=== PATIENT | female | born 1985 | race American Indian/Alaskan Native ===

== ENCOUNTER 2016-10-06 17:47 | Emergency (ER) | payer OTHER ==
[2016-10-06 18:59] LABS: Bilirubin,Urine NEG (Negative)
[2016-10-06 19:00] LABS: Blood,Urine SM (Negative); Ketones,Urine NEG (Negative); Leukocyte Esterase,Urine NEG (Negative); Mucus,Urine FEW /HPF; Nitrite,Urine NEG (Negative); Protein,Urine <15 mg/dL mg/dL (Negative); Urobilinogen,Urine < 2.0 mg/dL (<2.0)
[2016-10-07 10:01] LABS: Hematocrit 38.4 % (30.3-42.9); Hemoglobin 12.7 gm/dl (10.1-14.3); Mean Corpuscular HGB Conc 33 % (30-34); Mean Corpuscular Hemoglobin 28 pg (28-32); Mean Corpuscular Volume 84 fl (79-97); Platelet Count 300 K/mm3 (140-440); Red Blood Count 4.59 M/mm3 (3.65-5.03); Red Cell Distribution Width 14.4 % (13.2-15.2); White Blood Count 11.7 K/mm3 (4.5-11.0)
[2016-10-07 10:18] LABS: Anion Gap 16 mmol/L; Blood Urea Nitrogen 6 mg/dL (7-17); Carbon Dioxide 23 mmol/L (22-30); Chloride 103.7 mmol/L (98-107); Glucose 90 mg/dL (65-100); Magnesium 2.1 mg/dL (1.7-2.3); Potassium 4.3 mmol/L (3.6-5.0); Sodium 138 mmol/L (137-145)
--- NOTE | 2016-10-07 10:35 | Ultrasound Report ---
Transabdominal and transvaginal OB ultrasound. Findings: There is a single intrauterine with a crown-rump length of 8.1 mm corresponding to gestational age of 6 weeks 5 days. There is no evidence of subchorionic hemorrhage. heart rate measures 146 beats per minute. The right ovary is normal. There is a 1.6 cm in diameter cyst in the left ovary. Impression: 1. Viable IUP at 6 weeks 5 days gestation. 2. Small left ovarian cyst.
[2016-10-07 10:38] LABS: Calcium 12.4 mg/dL (8.4-10.2)
--- NOTE | 2016-10-07 10:40 | Emergency Department Report ---
HPI - General Chief Complaint: Dizziness Time Seen by Provider: 10/07/16 08:56 - HPI HPI: Chief complaint: Dizziness, nausea and sore throat HPI: Patient is 31-year-old female whose last menstrual period was in August who presents with some nausea, sore throat and dizziness. Patient describes the dizziness as a spinning sensation. Patient denies previous history of vertigo. Patient has 2 live children aged 8 and 6. She denies any vaginal bleeding or abdominal pain. Patient denies any other past medical history. Patient here with a friend who translates for her Mode of arrival: private car Source: Patient Began: 2-3 days Duration: 2-3 days Context: No headache, fever, cough, cold, upper respiratory infection. Quality: Pain-free Severity: out of 10 Improved with: Nothing Worsened with: Nothing Associated signs and symptoms: See above ED Past Medical Hx - Past Medical History Previous Medical History?: No - Surgical History Past Surgical History?: Yes Additional Surgical History: - Social History Smoking Status: Never Smoker Substance Use Type: None - Medications Home Medications: Home Medications Medication Instructions Recorded Confirmed Last Taken Type Ondansetron [Zofran Odt] 4 mg PO Q4H PRN #20 tab.rapdis 10/07/16 Unknown Rx ED Review of Systems ROS: Stated complaint: PREG/DIZZY Other details as noted in HPI ROS Constitutional: No fever ENT: No uri symptoms Cardiovascular: No chest pain Respiratory: No sob or cough GI: No diarrhea : No dysuria frequency or urgency, Skin: No rash Neuro: No focal weakness or numbness Psych: No depression Rodrigo/lymph: No edema Physical Exam - Physical Exam Vital Signs: Vital Signs 10/06/16 10/07/16 10/07/16 18:16 08:01 08:32 Temperature 98.6 F 98.4 F Pulse Rate 72 53 L Pulse Rate [ Lying] Respiratory 16 16 16 Rate Blood Pressure 127/73 Blood Pressure 133/62 [Left] Blood Pressure [Lying] O2 Sat by Pulse 100 99 99 Oximetry 10/07/16 10/07/16 10/07/16 09:08 09:10 09:21 Temperature Pulse Rate Pulse Rate [ Lying] Respiratory Rate Blood Pressure 118/68 118/73 Blood Pressure [Left] Blood Pressure [Lying] O2 Sat by Pulse 100 100 100 Oximetry 10/07/16 10/07/16 09:30 09:32 Temperature 98.5 F Pulse Rate 65 Pulse Rate [ 50 L Lying] Respiratory 16 Rate Blood Pressure Blood Pressure 118/68 [Left] Blood Pressure 121/58 [Lying] O2 Sat by Pulse 100 Oximetry Physical Exam: GENERAL: The patient is well-developed well-nourished . HEENT: Normocephalic. Atraumatic. Extraocular motions are intact. Patient has moist mucous membranes. Is no nystagmus. TMs are negative. Pharynx is negative NECK: Supple. No meningitic signs are noted. There is no adenopathy noted. CHEST/LUNGS: Clear to auscultation. There is no respiratory distress noted. HEART/CARDIOVASCULAR: Regular. There is no tachycardia. There is no gallop rub or murmur. ABDOMEN: Abdomen is soft, nontender. Patient has normal bowel sounds. There is no abdominal distention. SKIN: There is no rash. There is no edema. There is no diaphoresis. NEURO: The patient is awake, alert, and oriented. The patient is cooperative. The patient has no focal neurologic deficits. The patient has normal speech. MUSCULOSKELETAL: There is no tenderness or deformity. There is no limitation range of motion. There is no evidence of acute injury. ED Course Vital Signs 10/06/16 10/07/16 10/07/16 18:16 08:01 08:32 Temperature 98.6 F 98.4 F Pulse Rate 72 53 L Pulse Rate [ Lying] Respiratory 16 16 16 Rate Blood Pressure 127/73 Blood Pressure 133/62 [Left] Blood Pressure [Lying] O2 Sat by Pulse 100 99 99 Oximetry 10/07/16 10/07/16 10/07/16 09:08 09:10 09:21 Temperature Pulse Rate Pulse Rate [ Lying] Respiratory Rate Blood Pressure 118/68 118/73 Blood Pressure [Left] Blood Pressure [Lying] O2 Sat by Pulse 100 100 100 Oximetry 10/07/16 10/07/16 09:30 09:32 Temperature 98.5 F Pulse Rate 65 Pulse Rate [ 50 L Lying] Respiratory 16 Rate Blood Pressure Blood Pressure 118/68 [Left] Blood Pressure 121/58 [Lying] O2 Sat by Pulse 100 Oximetry - Reevaluation(s) Reevaluation #1: 10/07/16 Discussed elevated calcium with Dr. Min Ellis he states he will work it up further in the office. Have the patient see him in the next few days. ED Medical Decision Making - Lab Data Result diagrams: 10/07/16 09:22 10/07/16 09:22 Laboratory Tests 10/07/16 09:22 HCG, Quant [id number] H Laboratory Tests 10/07/16 09:22 Calcium 12.4 H* - EKG Data -: EKG Interpreted by Me EKG shows normal: sinus rhythm Rate: normal (61) - EKG Data When compared to previous EKG there are: previous EKG unavailable Interpretation: normal EKG - Radiology Data Radiology results: report reviewed (ultrasound shows 6 week 6 days IUP) Critical care attestation.: If time is entered above; I have spent that time in minutes in the direct care of this critically ill patient, excluding procedure time. ED Disposition Clinical Impression: Dizziness, Intrauterine Disposition: DISCHARGED TO HOME OR SELFCARE Is pt being admited?: No Does the pt Need Aspirin: No Condition: Stable Instructions: Dizziness (ED), (ED) Prescriptions: Ondansetron [Zofran Odt] 4 mg PO Q4H PRN #20 tab.rapdis PRN Reason: Nausea And Vomiting Referrals: PRIMARY CARE, [Primary Care Provider] - 3-5 Days MIN ELLIS MD [Staff Physician] - 7-10 days (Call to make an appointment) Time of Disposition: 10:36
[2016-10-07 12:14] VITALS: BP 120/80
== END 2016-10-07 16:29 | disposition home or self-care (01) ==
LOC: ED 10-07 00:06
DX: O26.891 Other specified pregnancy related conditions, first trimester (principal); R42 Dizziness and giddiness; Z3A.01 Less than 8 weeks gestation of pregnancy
CPT/HCPCS: 36415; 76801; 76817; 80048; 81001; 81025; 83735; 84702; 85027; 86850; 86900; 86901; 93005; 93010

== ENCOUNTER 2016-11-29 23:00 | Emergency (ER) | payer SELFPAY ==
[2016-11-29 23:53] LABS: Basophils % (Auto) 0.3 % (0.0-1.8); Eosinophils % (Auto) 0.8 % (0.0-4.3); Hematocrit 31.2 % (30.3-42.9); Hemoglobin 10.7 gm/dl (10.1-14.3); Mean Corpuscular HGB Conc 34 % (30-34); Mean Corpuscular Hemoglobin 29 pg (28-32); Mean Corpuscular Volume 85 fl (79-97); Platelet Count 268 K/mm3 (140-440); Red Blood Count 3.69 M/mm3 (3.65-5.03); Red Cell Distribution Width 14.2 % (13.2-15.2)
[2016-11-30 00:14] LABS: Blood Urea Nitrogen 4 mg/dL (7-17); Calcium 10.5 mg/dL (8.4-10.2); Carbon Dioxide 22 mmol/L (22-30); Chloride 103.2 mmol/L (98-107); Glucose 79 mg/dL (65-100); Potassium 3.1 mmol/L (3.6-5.0); Sodium 139 mmol/L (137-145)
[2016-11-30 00:26] LABS: Anion Gap 17 mmol/L
[2016-11-30 00:39] LABS: Bacteria,Urine 3+ /HPF (Negative); Bilirubin,Urine NEG (Negative); Blood,Urine NEG (Negative); Ketones,Urine NEG (Negative); Leukocyte Esterase,Urine TR (Negative); Mucus,Urine FEW /HPF; Nitrite,Urine NEG (Negative); Protein,Urine <15 mg/dL mg/dL (Negative)
[2016-11-30] MEDS ORDERED: PEPCID PO ONE (09:41)
[2016-11-30] MEDS ORDERED: ZOFRAN ODT PO ONE (09:41)
[2016-11-30] MEDS ORDERED: K-DUR PO ONE (09:41)
--- NOTE | 2016-11-30 09:49 | Emergency Department Report ---
ED N/V/D HPI - General Chief complaint: Nausea/Vomiting/Diarrhea Stated complaint: VOMITING, NO BM, Source: patient Mode of arrival: Ambulatory Limitations: Language Barrier - History of Present Illness Initial comments: Pt is a 31 yr old female at approximately 14 weeks gestation who presents with nausea, intermittent vomiting, and heart burn. Pt reports she has no care, does not smoke, and was seen in the ED 10/07 for dizziness and was diagnosed with . Pt is a poor historian and does not speak pashto , friend at bedside translating. Pt denies any fevers, chills, JIMÉNEZ, diarrhea, CP , SOB,falls, trauma, vaginal bleeding, vaginal fluid loss, does not take vitamins, travel, or sick contacts. - Related Data Previous Rx's Medication Instructions Recorded Last Taken Type Ondansetron [Zofran Odt] 4 mg PO Q4H PRN #20 tab.rapdis 11/30/16 Unknown Rx Pnv Cmb#21/Iron/Folic Acid 1 each PO DAILY #90 tablet 11/30/16 Unknown Rx [ Complete Caplet] Allergies Allergy/AdvReac Type Severity Reaction Status Date / Time No Known Allergies Allergy Unverified 10/06/16 18:22 ED Review of Systems ROS: Stated complaint: VOMITING, NO BM, Other details as noted in HPI Comment: All other systems reviewed and negative ED Past Medical Hx - Past Medical History Previous Medical History?: No - Surgical History Past Surgical History?: Yes Additional Surgical History: - Social History Smoking Status: Never Smoker Substance Use Type: None - Medications Home Medications: Home Medications Medication Instructions Recorded Confirmed Last Taken Type Ondansetron [Zofran Odt] 4 mg PO Q4H PRN #20 tab.rapdis 11/30/16 Unknown Rx Pnv Cmb#21/Iron/Folic Acid 1 each PO DAILY #90 tablet 11/30/16 Unknown Rx [ Complete Caplet] ED Physical Exam - General Limitations: Language Barrier General appearance: alert, in no apparent distress - Head Head exam: Present: atraumatic, normocephalic - Eye Eye exam: Present: normal appearance - ENT ENT exam: Present: mucous membranes moist - Neck Neck exam: Present: normal inspection - Respiratory Respiratory exam: Present: normal lung sounds bilaterally. Absent: respiratory distress - Cardiovascular Cardiovascular Exam: Present: regular rate, normal rhythm. Absent: systolic murmur, diastolic murmur, rubs, gallop - GI/Abdominal GI/Abdominal exam: Present: soft, normal bowel sounds. Absent: distended, tenderness, guarding, rebound - Extremities Exam Extremities exam: Present: normal inspection - Back Exam Back exam: Present: normal inspection - Neurological Exam Neurological exam: Present: alert, oriented X3 - Psychiatric Psychiatric exam: Present: normal affect, normal mood - Skin Skin exam: Present: warm, dry, intact, normal color. Absent: rash ED Course Vital Signs 11/29/16 11/30/16 11/30/16 23:29 06:20 06:31 Temperature 98.7 F Pulse Rate 74 67 Respiratory 20 20 Rate Blood Pressure 134/68 Blood Pressure 131/70 [Right] O2 Sat by Pulse 100 100 100 Oximetry ED Medical Decision Making - Lab Data Result diagrams: 11/29/16 23:41 11/29/16 23:41 - Medical Decision Making Prior ED records reviewed from 10/08/15, patient had an US at that time and was found to be 6weeks and 6days . prentatal vitamins were discussed at that visit, patient was also found to have high Ca levels for which she was supposed to follow up with Dr Carlton Ellis, which she did not do. I have re-discussed her us findings with her and instructed her to follow up with Dr Ellis Critical care attestation.: If time is entered above; I have spent that time in minutes in the direct care of this critically ill patient, excluding procedure time. ED Disposition Clinical Impression: Nausea and vomiting during prior to 22 weeks gestation, Hypercalcemia Disposition: DISCHARGED TO HOME OR SELFCARE Is pt being admited?: No Does the pt Need Aspirin: No Condition: Stable Instructions: Morning Sickness (ED), Hypercalcemia (ED) Prescriptions: Ondansetron [Zofran Odt] 4 mg PO Q4H PRN #20 tab.rapdis PRN Reason: Nausea And Vomiting Pnv Cmb#21/Iron/Folic Acid [ Complete Caplet] 1 each PO DAILY #90 tablet Referrals: PRIMARY CARE, [Primary Care Provider] - 2-3 Days (Dr Min Ellis) MIN ELLIS MD [Staff Physician] - 3-5 Days
[2016-11-30 10:31] VITALS: BP 120/78
== END 2016-11-30 10:31 | disposition home or self-care (01) ==
LOC: ED 23:00
DX: O21.9 Vomiting of pregnancy, unspecified (principal); O26.891 Other specified pregnancy related conditions, first trimester; E83.52 Hypercalcemia; R11.0 Nausea
CPT/HCPCS: 36415; 80048; 81001; 81025; 85025; 99283; Q0162

== ENCOUNTER 2017-05-19 22:05 | Inpatient (IN) | payer OTHER ==
[2017-05-20] MEDS ORDERED: BICITRA PO ONE (00:34)
[2017-05-20] MEDS ORDERED: PEPCID IV ONE (00:34)
[2017-05-20] MEDS ORDERED: REGLAN IV ONE (00:34)
--- NOTE | 2017-05-20 00:41 | History and Physical Report ---
History of Present Illness Date of examination: 05/20/17 Chief complaint: Contractions History of present illness: Pt is a 31yo BF EDC 05/20/17; EGA 40 0/7 weeks presents from the office complaining of contractions. She was seen in the office of [facility] today where her cx was 2/V/50/-2 She has had 2 previous C Sections and records are not available. Past History Past Medical History: no pertinent history Past Surgical History: section (x2) Social history: no significant social history, - Obstetrical History Expected Date of Delivery: 05/20/17 Actual Gestation: 40 Week(s) 0 Day(s) Medications and Allergies Allergies Allergy/AdvReac Type Severity Reaction Status Date / Time No Known Allergies Allergy Unverified 10/06/16 18:22 Home Medications Medication Instructions Recorded Confirmed Last Taken Type Ondansetron [Zofran Odt] 4 mg PO Q4H PRN #20 tab.rapdis 11/30/16 Unknown Rx 21/Iron Fu/Folic Acid 1 each PO DAILY #90 tablet 11/30/16 Unknown Rx [ Complete Caplet] Active Meds: Active Medications Citric Acid/Sodium Citrate (Bicitra) 30 ml PO ONCE ONE Stop: 05/20/17 00:35 Famotidine (Pepcid) 20 mg IV ONCE ONE Stop: 05/20/17 00:35 Cefazolin Sodium (Ancef/Sterile Water 2 Gm/20 Ml) 2 gm in 20 mls @ 80 mls/hr IV PREOP NR PRN Reason: Protocol Lactated Ringer's (Lactated Ringers) 1,000 mls @ 2,250 mls/hr IV PREOP MILAGROS Stop: 05/21/17 01:27 Oxytocin/Sodium Chloride (Pitocin/Ns 20 Unit/1000ml Drip) 20 units in 1,000 mls @ 0 mls/hr IV TITR MILAGROS PRN Reason: As Directed Metoclopramide HCl (Reglan) 10 mg IV ONCE ONE Stop: 05/20/17 00:35 Review of Systems All systems: negative - Vital Signs Vital signs: Vital Signs Pulse Pulse Ox 208 H 82 L 05/19/17 23:08 05/19/17 23:08 Temp Pulse Resp BP Pulse Ox 278 H 82 L 05/20/17 00:39 05/20/17 00:39 - Physical Exam Breasts: Positive: deferred Cardiovascular: Regular rate Lungs: Positive: Clear to auscultation Abdomen: Positive: normal appearance Genitourinary (Female): Positive: normal external genitalia Vagina: Positive: normal moisture Uterus: Positive: enlarged Extremities: Positive: normal - Obstetrical FHR: category 2 Uterine Contraction Monitor Mode: External Cervical Dilatation: 2 Cervical Effacement Percentage: 50 station: -2 Uterine Contraction Pattern: Regular Uterine Tone Measurement Phase: Contraction Uterine Contraction Intensity: Moderate Results Result Diagrams: 05/20/17 00:50 All other labs normal. Assessment and Plan - Patient Problems (1) 40 weeks gestation of Onset Date: 05/20/17 Current Visit: Yes Status: Acute Plan to address problem: A: IUP @ 40 0/7 weeks Previous C Section x 2 Non-reassuring surveillance P: Admit to L&D for repeat C Section Obtain medical records (2) Previous delivery affecting Onset Date: 05/20/17 Current Visit: Yes Status: Acute
[2017-05-20] MEDS ORDERED: ANCEF/STERILE WATER 2 GM/20 ML 2 GM/20 ML SYRINGE IV NR (01:00)
[2017-05-20] MEDS ORDERED: LACTATED RINGERS 1,000 ML IV SCH (01:00)
[2017-05-20] MEDS ORDERED: PITOCin/NS 20 UNIT/1000ML DRIP 20 UNITS/1,000 ML BAG IV SCH ×2 (01:00→04:00)
[2017-05-20 01:23] LABS: Basophils % (Auto) 0.6 % (0.0-1.8); Eosinophils % (Auto) 0.5 % (0.0-4.3); Hematocrit 32.7 % (30.3-42.9); Hemoglobin 11.2 gm/dl (10.1-14.3); Mean Corpuscular HGB Conc 34 % (30-34); Mean Corpuscular Hemoglobin 29 pg (28-32); Mean Corpuscular Volume 85 fl (79-97); Platelet Count 317 K/mm3 (140-440); Red Blood Count 3.87 M/mm3 (3.65-5.03); Red Cell Distribution Width 15.5 % (13.2-15.2); White Blood Count 10.1 K/mm3 (4.5-11.0)
--- NOTE | 2017-05-20 02:14 | Anesthesia Consultation ---
Anesthesia Consult and Med Hx Date of service: 05/20/17 - Airway Anesthetic Teeth Evaluation: Good ROM Head & Neck: Adequate Mental/Hyoid Distance: Adequate Mallampati Class: Class II Intubation Access Assessment: Probably Good - Pulmonary Exam CTA: Yes - Cardiac Exam Cardiac Exam: RRR - Pre-Operative Health Status ASA Pre-Surgery Classification: ASA2 Proposed Anesthetic Plan: Spinal - Pulmonary Hx Asthma: No COPD: No Hx Pneumonia: No - Cardiovascular System Hx Hypertension: No - Central Nervous System Hx Seizures: No Hx Psychiatric Problems: No - Endocrine Hx Renal Disease: No Hx End Stage Renal Disease: No Hx Hypothyroidism: No Hx Hyperthyroidism: No - Hematic Hx Anemia: No Hx Sickle Cell Disease: No
--- NOTE | 2017-05-20 02:14 | Anesthesia Day of Surgery ---
Anesthesia Day of Surgery - Day of Surgery Patient Examined: Yes Patient H&P Reviewed: Yes Patient is NPO: Yes
[2017-05-20] MEDS ORDERED: DEMEROL ONE (02:19)
[2017-05-20] MEDS ORDERED: NACL 0.9% IR ONE (02:25)
[2017-05-20] MEDS ORDERED: WATER FOR IRRIG STERILE IR ONE (02:25)
--- NOTE | 2017-05-20 03:26 | Operative Report ---
Operative Report Operative Report: Date of procedure: 05/20/2017 Pre-operative diagnosis: 1. Intrauterine of 40-0/7 weeks in labor 2. Previous 2 3. Non-reassuring surveillance Post-operative diagnosis: Same Procedure name(s): Repeat low transverse section Surgeon: Min Ellis MD Enrollment Eligibility Representative: None Anesthesia: Spinal anesthesia by Dr. Drake EBL: 600 mls Findings: A 2968 g male infant Apgars 8 at 1 minute 9 at 5 minutes. Clear amniotic fluid. Normal uterus with lower uterine adhesions. Normal tubes and ovaries bilaterally. Procedure: After the patient was prepped and draped in usual sterile fashion, and after satisfactory level of epidural anesthesia was obtained, the skin knife was used to make a transverse skin incision through the previous skin scar. The incision was excised down to layer of the fascia, which was nicked in the midline and extended laterally using the Bovie cautery. The rectus muscles were dissected off the rectus fascia both superiorly and inferiorly. The rectus bellies in the midline, and the peritoneum was entered under direct visualization. The peritoneal incision was extended superiorly and inferiorly. A bladder flap was created and the bladder blade was then placed. The uterus was scored in a curvilinear linear fashion, entered in the midline revealing clear amniotic fluid. The 's head was delivered onto the surgical field, and the oropharynx and nasopharynx were bulb suctioned. The rest of the 's body was delivered, cord was doubly clamped and cut and the infant was handed to the waiting respiratory team. Cord blood was then obtained. The placenta was manually removed from the uterus, and the uterus removed from its normal anatomical position. After gentle uterine lavage, the incision was inspected and found to be without extensions. It was then closed in 2 layers using 0 Vicryl suture in a running interlocking fashion, the second layer imbricating the first. After good hemostasis was achieved, copious amounts or irrigation was performed, and the gutters were suctioned free of blood and blood clots. The Tisseel sealant was sprayed across the uterine incision. The uterus was then returned to its normal anatomical position, and after excellent hemostasis assured, the peritoneum was re-approximated using 3- 0 Vicryl suture in a running interlocking fashion, and then the rectus muscles were re-approximated using 3-0 Vicryl suture in a [id number] configuration. The fascia was then re-approximated using 0 Vicryl suture in running interlocking fashion. The subcutaneous layer was made hemostatic using Bovie cautery, the Tisseel sealant was sprayed across the fascial incision and the skin edges re-approximated using 4-0 Vicryl suture in a sub-cuticular fashion. Patient tolerated the procedure well was transported to recovery in stable condition.
[2017-05-20] MEDS ORDERED: MYLICON PO PRN (03:28)
[2017-05-20] MEDS ORDERED: MILK OF MAGNESIA PO PRN (03:28)
[2017-05-20] MEDS ORDERED: PHENERGAN PR PRN (03:28)
[2017-05-20] MEDS ORDERED: TUCKS PAD TP PRN (03:28)
[2017-05-20] MEDS ORDERED: ZOFRAN IV PRN (03:28)
[2017-05-20] MEDS ORDERED: NARCAN 0.4 MG/1 ML IV PRN (03:28)
[2017-05-20] MEDS ORDERED: LANSINOH TP PRN (03:28)
--- NOTE | 2017-05-20 03:45 | Post Anesthesia Evaluation ---
- Post Anesthesia Evaluation Patient Participated: Yes Airway Patent: Yes Stable Respiratory Function: Yes Nausea/Vomiting: No Temp > 96.8F: Yes Pain Manageable: Yes Adequeate Hydration: Yes Anesthesia Complications: No Block Receding Appropriately: Yes Patient on Ventilator: No
[2017-05-20] MEDS ORDERED: SODIUM CHLORIDE FLUSH SYRINGE 10 ML IV NR (04:00)
[2017-05-20] MEDS ORDERED: D5LR 1,000 ML IV SCH (04:00)
[2017-05-20] MEDS: TORADOL IV PRN ×2 (04:31→12:11)
[2017-05-20] MEDS ORDERED: DILAUDID IV ONE (09:09)
[2017-05-20] MEDS: ANCEF/NS 1 GM/50 ML 1 GM/50 ML BAG IV SCH ×2 (09:27→17:59)
[2017-05-20] MEDS: FEOSOL PO SCH (10:00)
[2017-05-20] MEDS: PRENATAL VITAMIN PO SCH (10:00)
[2017-05-20] MEDS ORDERED: Fluarix Quad 2017-2018(36 MOS+ IM ONE (12:00)
[2017-05-20 16:29] LABS: Hematocrit 29.4 % (30.3-42.9); Hemoglobin 9.7 gm/dl (10.1-14.3)
[2017-05-20] MEDS: PERCOCET 5/325 PO PRN (19:39)
[2017-05-20] MEDS: MOTRIN PO PRN (19:41)
[2017-05-20] MEDS: NORMODYNE PO SCH (21:50)
[2017-05-21] MEDS: PERCOCET 5/325 PO PRN ×2 (02:50→10:34)
[2017-05-21] MEDS ORDERED: M-M-R II VACCINE SUB-Q ONE (06:00)
[2017-05-21] MEDS ORDERED: BOOSTRIX IM ONE (06:00)
--- NOTE | 2017-05-21 07:57 | Progress Note ---
Assessment and Plan - Patient Problems (1) 40 weeks gestation of Onset Date: 05/20/17 Current Visit: Yes Status: Resolved (2) Previous delivery affecting Onset Date: 05/20/17 Current Visit: Yes Status: Resolved (3) Status post repeat low transverse section Onset Date: 05/21/17 Current Visit: Yes Status: Resolved Plan to address problem: A: S/P Repeat C Section - POD #1 Doing well Asymptomatic anemia - stable Chronic hypertension - improved on Labetolol 200mg BID P: Continue RPOC Anticipate discharge in 24hrs Subjective - Subjective Date of service: 05/21/17 Principal diagnosis: s/p Repeat C Section - POD #2 Interval history: Pt is feeling well without complaints. Tolerating a reg diet without nausea or vomiting. Patient reports: appetite normal, voiding normally, pain well controlled, flatus , ambulating normally [place]: doing well, nursing well Objective - Vital Signs Latest vital signs: Vital Signs Temp Pulse Resp BP BP Pulse Ox 05/21/17 05:00 67 137/63 05/21/17 03:50 18 05/21/17 02:50 20 05/20/17 21:50 71 141/70 05/20/17 21:08 98.9 F 70 20 154/65 05/20/17 19:41 20 05/20/17 19:39 20 05/20/17 16:35 98.6 F 72 28 H 164/82 98 05/20/17 12:40 99.0 F 68 18 159/69 05/20/17 08:00 97.9 F 66 18 162/69 Intake and Output 05/20/17 05/21/17 05/21/17 22:59 06:59 14:59 Intake Total 120 360 Output Total 200 Balance -80 360 Intake: Oral 120 Intake, Free Water 360 Output: Urine 200 Void 200 Other: Total, Intake Amount 120 Total, Output Amount 200 # Voids Void 2 - Exam Breasts: Present: deferred Cardiovascular: Present: Regular rate Lungs: Present: Clear to auscultation Abdomen: Present: normal appearance, soft Uterus: Present: normal, firm, fundal height below umbilicus Extremities: Present: normal Incision: Present: normal, dry, intact, dressed - Labs Labs: Abnormal lab results 05/20/17 Range/Units 15:48 Hgb 9.7 L (10.1-14.3) gm/dl Hct 29.4 L (30.3-42.9) % Laboratory Tests 05/20/17 05/20/17 05/20/17 00:50 00:50 15:48 WBC 10.1 RBC 3.87 Hgb 11.2 9.7 L Hct 32.7 29.4 L MCV 85 MCH 29 MCHC 34 RDW 15.5 H Plt Count 317 Lymph % (Auto) 19.3 [place] % (Auto) 7.4 H Eos % (Auto) 0.5 Baso % (Auto) 0.6 Lymph # 1.9 [place] # 0.7 Eos # 0.0 Baso # 0.1 Seg Neutrophils % 72.2 H Seg Neutrophils # 7.3 Blood Type O POSITIVE Antibody Screen Negative
[2017-05-21] MEDS: NORMODYNE PO SCH ×2 (10:25→21:09)
[2017-05-21] MEDS: FEOSOL PO SCH (10:25)
[2017-05-21] MEDS: PRENATAL VITAMIN PO SCH (10:25)
[2017-05-21] MEDS: MOTRIN PO PRN (10:34)
--- NOTE | 2017-05-21 17:20 | Progress Note ---
Subjective Date of service: 05/21/17 Principal diagnosis: s/p Repeat C Section - POD #2 Interval history: 1st POD after Patient is in the bed, comfortable. Pain is well controlled with pain meds. Ambulated well. No residual neurological deficit. No significant pruritus. No anesthesia complications Objective - Constitutional Vitals: Vital Signs - 12hr 05/21/17 05/21/17 08:20 10:25 Temperature 98.1 F Pulse Rate 97 H 97 H Blood Pressure 131/80 Blood Pressure 131/80 [Right] - Labs CBC & Chem 7: 05/20/17 15:48
[2017-05-22] MEDS: NORCO 5/325 PO PRN ×3 (00:24→16:25)
--- NOTE | 2017-05-22 07:43 | Progress Note ---
Assessment and Plan POD# 2 s/p Repeat LTCS -Stable -Desires discharge home P: -Will discharge home on labetalol 300 mg twice a day -Needs BP check next week -Return to clinic in 2 weeks for incision check - Patient Problems (1) Status post repeat low transverse section Onset Date: 05/21/17 Current Visit: Yes Status: Resolved (2) HTN (hypertension) Current Visit: Yes Status: Acute Qualifiers: Hypertension type: H Subjective - Subjective Date of service: 05/22/17 Principal diagnosis: s/p Repeat C Section - POD #2 Interval history: Patient seen and examined, stable doing well. No issues, blood pressure range 140s over 90s No Shortness of breath or chest pain no headaches Patient reports: appetite normal, voiding normally, pain well controlled, flatus , ambulating normally, no dizzy ambulation, no nauseated : doing well Objective - Vital Signs Latest vital signs: Vital Signs Temp Pulse Resp BP BP 05/22/17 01:09 98.7 F 81 20 140/63 05/22/17 00:24 18 05/21/17 21:09 86 143/58 05/21/17 17:00 98.7 F 86 20 143/58 05/21/17 10:25 97 H 131/80 05/21/17 08:20 98.1 F 97 H 131/80 Intake and Output 05/21/17 05/21/17 05/22/17 15:59 23:59 07:59 Intake Total 360 240 240 Balance 360 240 240 Intake: Oral 360 120 Intake, Free Water 120 240 Other: Total, Intake Amount 120 120 Voiding Method Toilet Toilet # Voids Void 1 1 1 - Exam Abdomen: Present: normal appearance, soft. Absent: distention, tenderness, guarding, rigidity
--- NOTE | 2017-05-22 07:46 | Discharge Summary ---
Providers - Providers Date of Admission: 05/20/17 00:47 Date of discharge: 05/22/17 Attending physician: LEONOR MCMAHAN Primary care physician: LEONOR MCMAHAN Hospitalization Reason for admission: active labor, section Delivery: Procedure: repeat low transverse Incision: dry, intact Other procedures: none complications: none Discharge diagnosis: IUP at term delivered [place] baby: male Hospital course: Uncomplicated postoperative course Condition at discharge: Good Disposition: DC-01 TO HOME OR SELFCARE - Discharge Diagnoses (1) Status post repeat low transverse section Status: Resolved (2) HTN (hypertension) Status: Acute Qualifiers: Hypertension type: H Plan - Discharge Medications Prescriptions: Ferrous Sulfate [Feosol 325 MG tab] 325 mg PO BID #60 tablet HYDROcodone/APAP 5-325 [[place] 5/325] 1 each PO Q6HR PRN #30 tablet PRN Reason: Pain Ibuprofen [Motrin] 800 mg PO Q8HR PRN #30 tablet PRN Reason: Moder Pain Unrelieved By [place] Labetalol [Normodyne TAB] 200 mg PO BID #60 tablet Vit Calc,Iron,Folic [ Vitamins] 1 each PO DAILY #30 tablet - Provider Discharge Summary Activity: no sex for 6 weeks, no heavy lifting 4 weeks, no strenuous exercise Diet: routine Additional instructions: [] Smoking cessation referral if applicable(refer to patient education folder for contact #) [] Refer to [facility] Booklet Call your doctor immediately for: * Fever > 100.5 * Heavy vaginal bleeding ( >1 pad per hour) * Severe persistent headache * Shortness of breath * Reddened, hot, painful area to leg or breast * Drainage or odor from incision. * Keep incision clean and dry at all times and follow doctor's instructions regarding bathing/showering - Follow up plan Follow up: LEONOR MCMAHAN MD [Primary Care Provider] - 05/26/17 (BP check) RANDI ARMSTRONG MD [Staff Physician] - 14 Days (Incision check)
[2017-05-22] MEDS: FEOSOL PO SCH (09:08)
[2017-05-22] MEDS: PRENATAL VITAMIN PO SCH (09:08)
[2017-05-22] MEDS: MOTRIN PO PRN ×2 (09:09→16:26)
[2017-05-22] MEDS: NORMODYNE PO SCH (09:10)
[2017-05-22 09:36] LABS: HIV-1 Antigen p24 Non React (Non React); HIVR-1/2 Ab Non React (Non React)
[2017-05-22 17:28] VITALS: BP 150/64
== END 2017-05-22 19:05 | disposition home or self-care (01) | DRG 766 ==
LOC: TRG 22:05 → APU 05-20 00:47 → OB 05-20 06:53
PROVIDERS: ADMIT Obstetrics & Gynecology; ATTEND Obstetrics & Gynecology
PROC: 10D00Z1 Extraction of Products of Conception, Low, Open Approach (ICD-10-PCS; principal; 2017-05-20)
PROC: 3E0234Z Introduction of Serum, Toxoid and Vaccine into Muscle, Percutaneous Approach (ICD-10-PCS; 2017-05-20)
DX: O34.211 Maternal care for low transverse scar from previous cesarean delivery (principal); O76 Abnormality in fetal heart rate and rhythm complicating labor and delivery; Z37.0 Single live birth; Z3A.40 40 weeks gestation of pregnancy; Z23 Encounter for immunization; O16.4 Unspecified maternal hypertension, complicating childbirth
CPT/HCPCS: 36415; 85014; 85018; 85025; 86592; 86762; 86850; 86900; 86901; 87806; 90686; 90707; 99211; G0463; J0690; J1170; J1885; J2175; J2405; J2590; J2765; J7120; J7121

== ENCOUNTER 2017-06-05 10:21 | Inpatient (IN) | payer OTHER ==
[2017-06-05 11:13] LABS: Anion Gap 17 mmol/L; BUN/Creatinine Ratio 40; Blood Urea Nitrogen 16 mg/dL (7-17); Calcium 9.7 mg/dL (8.4-10.2); Carbon Dioxide 25 mmol/L (22-30); Chloride 106.4 mmol/L (98-107); Glucose 72 mg/dL (65-100); Potassium 3.6 mmol/L (3.6-5.0); Sodium 145 mmol/L (137-145)
[2017-06-05 11:20] LABS: Basophils % (Auto) 0.7 % (0.0-1.8); Eosinophils % (Auto) 1.4 % (0.0-4.3); Hematocrit 31.7 % (30.3-42.9); Hemoglobin 10.5 gm/dl (10.1-14.3); Mean Corpuscular HGB Conc 33 % (30-34); Mean Corpuscular Hemoglobin 28 pg (28-32); Mean Corpuscular Volume 84 fl (79-97); Platelet Count 524 K/mm3 (140-440); Red Blood Count 3.78 M/mm3 (3.65-5.03); Red Cell Distribution Width 16.4 % (13.2-15.2); White Blood Count 6.6 K/mm3 (4.5-11.0)
[2017-06-05] MEDS ORDERED: VANCOMYCIN/NS 1 GM/250 ML 1 GM/250 ML BAG IV ONE (12:09)
[2017-06-05] MEDS ORDERED: NACL 0.9% 1000 ML 1,000 ML IV ONE (12:09)
--- NOTE | 2017-06-05 13:18 | Emergency Department Report ---
ED Abdominal Pain HPI - General Chief Complaint: Laceration/Recheck/Suture Stated Complaint: OPEN Time Seen by Provider: 06/05/17 11:48 Source: patient, family Mode of arrival: Ambulatory Limitations: Language Barrier - History of Present Illness Initial Comments: 31 yo female with c-sec done on 05/19/[address] Min Ellis is here with h/o drainage from incision site and dehiscence of incision. Pt had drainage for 3 days and wound opened up. She does not speak Polish and has the friend of her her to translate. The entire room has extremely bad odor of rotting flesh Complaint: abdominal pain -: Gradual, days(s) (3) Location: suprapubic Radiation: none Migration to: no migration Severity scale (0 -10): 5 Quality: aching Consistency: constant Improves With: nothing Worsens With: nothing Associated Symptoms: other (wound dehiscence) - Related Data LMP (females 10-50): other ( by two weeks) Previous Rx's Medication Instructions Recorded Last Taken Type Ondansetron [Zofran Odt] 4 mg PO Q4H PRN #20 tab.rapdis 11/30/16 1 Week Ago Rx ~05/13/17 21/Iron Fu/Folic Acid 1 each PO DAILY #90 tablet 11/30/16 1 Week Ago Rx [ Complete Caplet] ~05/13/17 Ferrous Sulfate [Feosol 325 MG tab] 325 mg PO BID #60 tablet 05/20/17 Unknown Rx HYDROcodone/APAP 5-325 [[place] 1 each PO Q6HR PRN #30 tablet 05/20/17 Unknown Rx 5/325] Ibuprofen [Motrin] 800 mg PO Q8HR PRN #30 tablet 05/20/17 Unknown Rx Vit Calc,Iron,Folic 1 each PO DAILY #30 tablet 05/20/17 Unknown Rx [ Vitamins] Labetalol [Normodyne TAB] 200 mg PO BID #60 tablet 05/21/17 Unknown Rx Labetalol [Normodyne TAB] 300 mg PO BID #120 tablet 05/22/17 Unknown Rx Allergies Allergy/AdvReac Type Severity Reaction Status Date / Time No Known Allergies Allergy Verified 06/05/17 12:12 ED Review of Systems ROS: Stated complaint: OPEN Other details as noted in HPI Constitutional: denies: chills, fever Eyes: denies: eye pain, eye discharge, vision change ENT: denies: ear pain, throat pain Respiratory: denies: cough, shortness of breath, wheezing Cardiovascular: denies: chest pain, palpitations Endocrine: no symptoms reported Gastrointestinal: denies: abdominal pain, nausea, diarrhea Genitourinary: denies: urgency, dysuria, discharge Musculoskeletal: denies: back pain, joint swelling, arthralgia Skin: lesions, other (wound dehiscence). denies: rash Neurological: denies: headache, weakness, paresthesias Psychiatric: denies: anxiety, depression Hematological/Lymphatic: denies: easy bleeding, easy bruising ED Past Medical Hx - Past Medical History Previous Medical History?: Yes Hx Hypertension: Yes (post ) Hx Congestive Heart Failure: No Hx Diabetes: No Hx Deep Vein Thrombosis: No Hx Renal Disease: No Hx Sickle Cell Disease: No Hx Seizures: No Hx Asthma: No Hx COPD: No Hx HIV: No - Surgical History Additional Surgical History: - Social History Smoking Status: Never Smoker Substance Use Type: None - Medications Home Medications: Home Medications Medication Instructions Recorded Confirmed Last Taken Type Ondansetron [Zofran Odt] 4 mg PO Q4H PRN #20 tab.rapdis 11/30/16 05/20/17 1 Week Ago Rx ~05/13/17 21/Iron Fu/Folic Acid 1 each PO DAILY #90 tablet 11/30/16 05/20/17 1 Week Ago Rx [ Complete Caplet] ~05/13/17 Ferrous Sulfate [Feosol 325 MG tab] 325 mg PO BID #60 tablet 05/20/17 Unknown Rx HYDROcodone/APAP 5-325 [[place] 1 each PO Q6HR PRN #30 tablet 05/20/17 Unknown Rx 5/325] Ibuprofen [Motrin] 800 mg PO Q8HR PRN #30 tablet 05/20/17 Unknown Rx Vit Calc,Iron,Folic 1 each PO DAILY #30 tablet 05/20/17 Unknown Rx [ Vitamins] Labetalol [Normodyne TAB] 200 mg PO BID #60 tablet 05/21/17 Unknown Rx Labetalol [Normodyne TAB] 300 mg PO BID #120 tablet 05/22/17 Unknown Rx ED Physical Exam - General Limitations: Language Barrier General appearance: alert, in no apparent distress - Head Head exam: Present: atraumatic, normocephalic - Eye Eye exam: Present: normal appearance, EOMI - ENT ENT exam: Present: mucous membranes moist - Neck Neck exam: Present: normal inspection - Respiratory Respiratory exam: Present: normal lung sounds bilaterally. Absent: respiratory distress - Cardiovascular Cardiovascular Exam: Present: regular rate, normal rhythm. Absent: systolic murmur, diastolic murmur, rubs, gallop - GI/Abdominal GI/Abdominal exam: Present: soft, tenderness (around incision in lower abdomen) , normal bowel sounds, other (infected) - Rectal Rectal exam: Present: deferred - Extremities Exam Extremities exam: Present: normal inspection, full ROM - Back Exam Back exam: Present: normal inspection - Neurological Exam Neurological exam: Present: alert, oriented X3 - Psychiatric Psychiatric exam: Present: normal affect, normal mood - Skin Skin exam: Present: warm, dry, normal color, other (wound dehiscence). Absent: rash ED Course Vital Signs 06/05/17 10:23 Temperature 98.1 F Pulse Rate 73 Respiratory 18 Rate Blood Pressure 172/95 O2 Sat by Pulse 98 Oximetry - Reevaluation(s) Reevaluation #1: 06/05/17 13:[address] Archuleta about her BP of 172/95 , he wanted her treated. I will give her hydralazine ED Medical Decision Making - Lab Data Result diagrams: 06/05/17 10:45 06/05/17 10:45 - Medical Decision Making surgical site infection, abdominal infection Critical care attestation.: If time is entered above; I have spent that time in minutes in the direct care of this critically ill patient, excluding procedure time. ED Disposition Clinical Impression: Wound dehiscence, , delivered with complication Hypertension Qualifiers: Hypertension type: unspecified Qualified Code(s): I10 - Essential (primary) hypertension Disposition: OP ADMIT IP TO THIS HOSP Is pt being admited?: Yes Does the pt Need Aspirin: No Condition: Stable Instructions: Hypertension (ED) Referrals: PRIMARY CARE,MD [Primary Care Provider] - 3-5 Days Time of Disposition: 12:50 (case reviewed with Dr Archuleta and he will admit her to his service)
--- NOTE | 2017-06-05 13:35 | Short Stay Summary ---
<RANDI ARMSTRONG - Last Filed: 06/05/17 13:46> Short Stay Documentation Date of service: 06/05/17 Narrative H&P: C/O: Incision opened 3-4 days Pt is a 31yo BF status post 3rd repeat on 05/20/2017 EDC 05/20/17 ; she is a [facility] patient and speaks limited Faroese, history from her . Essential history this patient claims her wound opened 3 days ago, her is a electric lift truck driver and was not home so she did not come in immediately. Denies fever or chills, no other occasional symptoms. Does not appearing pain Inspection of the wound shows a ~ 3-4 cm opening in the midline of her pfannestial scar. Pus like material covers the surface of the subcutaneous wound , no obvious necrotic areas on my visual inspection at this time. Fascia appears to be intact WBC is wnl Past medical history unremarkable Past surgical history 3 C-sections A: Wound Breakdown P: -Admit -Continue antibiotic coverage started by ER physician -Will clean and pack the wound at this time -Consult to wound care -See no need to take to the OR at this time Addendum: Just noticed patient's blood pressure elevated to the 170s over 90s. She is still in the ER, contacted the ED physician who has agreed to give her hydralazine at this time. - History Past Medical History: No medical history Past Surgical History: (x 3) Social history: , full code, no smoking, no alcohol abuse, no prescription drug abuse, no IV drug use - Allergies and Medications Current Medications: Allergies No Known Allergies Allergy (Verified 06/05/17 12:12) Home Medications Medication Instructions Recorded Confirmed Last Taken Type Ondansetron [Zofran Odt] 4 mg PO Q4H PRN #20 tab.rapdis 11/30/16 05/20/17 1 Week Ago Rx ~05/13/17 21/Iron Fu/Folic Acid 1 each PO DAILY #90 tablet 11/30/16 05/20/17 1 Week Ago Rx [ Complete Caplet] ~05/13/17 Ferrous Sulfate [Feosol 325 MG tab] 325 mg PO BID #60 tablet 05/20/17 Unknown Rx HYDROcodone/APAP 5-325 [[place] 1 each PO Q6HR PRN #30 tablet 05/20/17 Unknown Rx 5/325] Ibuprofen [Motrin] 800 mg PO Q8HR PRN #30 tablet 05/20/17 Unknown Rx Vit Calc,Iron,Folic 1 each PO DAILY #30 tablet 05/20/17 Unknown Rx [ Vitamins] Labetalol [Normodyne TAB] 200 mg PO BID #60 tablet 05/21/17 Unknown Rx Labetalol [Normodyne TAB] 300 mg PO BID #120 tablet 05/22/17 Unknown Rx Active Medications Vancomycin HCl (Vancomycin/Ns 1 Gm/250 Ml) 1 gm in 250 mls @ 167.007 mls/hr IV ONCE.ED ONE PRN Reason: Protocol Stop: 06/05/17 13:38 Metronidazole (Flagyl 500 Mg/100 Ml) 500 mg in 100 mls @ 100 mls/hr IV Q6HR [facility] - Physical exam General appearance: no acute distress, well-nourished, obese HEENT: Atraumatic Lungs: Clear to auscultation Heart: Regular rate, Normal S1, Normal S2 Gastrointestinal: normal, normoactive bowel sounds, no distended, no masses, no guarding, other Extremities: no ischemia (Inspection of the wound shows a ~ 3-4 cm opening in the midline of her pfannestial scar. Pus like material covers the surface of the subcutaneous wound, no obvious necrotic areas on my visual inspection at this time. Fascia appears to be intact) - Disposition Condition at discharge: Good Disposition: DC-01 TO HOME OR SELFCARE Short Stay Discharge Plan Follow up with: PRIMARY CARE, [Primary Care Provider] - 3-5 Days LEONOR MCMAHAN MD [Staff Physician] - 7 Days NARINDER HAYDEN [Registered Nurse] - 7 Days Prescriptions: Cephalexin [Keflex] 500 mg PO Q6HR #28 capsule Ibuprofen [Motrin 800 MG tab] 800 mg PO Q8HR PRN #30 tablet PRN Reason: Moder Pain Unrelieved By [place] <NAYELY GALICIA - Last Filed: 06/05/17 13:56> Short Stay Documentation - Allergies and Medications Current Medications: Allergies No Known Allergies Allergy (Verified 06/05/17 12:12) Home Medications Medication Instructions Recorded Confirmed Last Taken Type Ondansetron [Zofran Odt] 4 mg PO Q4H PRN #20 tab.rapdis 11/30/16 05/20/17 1 Week Ago Rx ~05/13/17 21/Iron Fu/Folic Acid 1 each PO DAILY #90 tablet 11/30/16 05/20/17 1 Week Ago Rx [ Complete Caplet] ~05/13/17 Ferrous Sulfate [Feosol 325 MG tab] 325 mg PO BID #60 tablet 05/20/17 Unknown Rx HYDROcodone/APAP 5-325 [[place] 1 each PO Q6HR PRN #30 tablet 05/20/17 Unknown Rx 5/325] Ibuprofen [Motrin] 800 mg PO Q8HR PRN #30 tablet 05/20/17 Unknown Rx Vit Calc,Iron,Folic 1 each PO DAILY #30 tablet 05/20/17 Unknown Rx [ Vitamins] Labetalol [Normodyne TAB] 200 mg PO BID #60 tablet 05/21/17 Unknown Rx Labetalol [Normodyne TAB] 300 mg PO BID #120 tablet 05/22/17 Unknown Rx Active Medications Acetaminophen (Tylenol) 650 mg PO Q4H PRN PRN Reason: Pain MILD(1-3)/Fever >100.5/JIMÉNEZ Acetaminophen/Hydrocodone Bitart ([place] 5/325) 2 each PO Q6H PRN PRN Reason: Pain, Moderate (4-6) Bisacodyl (Dulcolax) 10 mg TN QDAY PRN PRN Reason: Constipation unrelieved by MOM Metronidazole (Flagyl 500 Mg/100 Ml) 500 mg in 100 mls @ 100 mls/hr IV Q6HR [facility] Dextrose/Sodium Chloride (D5/0.45ns) 1,000 mls @ 125 mls/hr IV DIRECT [facility]AGROS Ibuprofen (Motrin) 600 mg PO Q6H PRN PRN Reason: Pain, Mild (1-3) Labetalol HCl (Normodyne) 200 mg PO BID [facility] Magnesium Hydroxide (Milk Of Magnesia) 30 ml PO Q4H PRN PRN Reason: Constipation Morphine Sulfate (Morphine) 2 mg IV Q4H PRN PRN Reason: Pain, Moderate (4-6) Ondansetron HCl (Zofran) 4 mg IV Q8H PRN PRN Reason: N/V unrelieved by Reg[place] <LEONOR MCMAHAN - Last Filed: 06/09/17 16:28> Short Stay Documentation - History Past Medical History: hypertension - Allergies and Medications Current Medications: Allergies No Known Allergies Allergy (Verified 06/05/17 12:12) Home Medications Medication Instructions Recorded Confirmed Last Taken Type Ondansetron [Zofran Odt] 4 mg PO Q4H PRN #20 tab.rapdis 11/30/16 06/05/17 1 Week Ago Rx ~05/13/17 21/Iron Fu/Folic Acid 1 each PO DAILY #90 tablet 11/30/16 06/05/17 1 Week Ago Rx [ Complete Caplet] ~05/13/17 Ferrous Sulfate [Feosol 325 MG tab] 325 mg PO BID #60 tablet 05/20/17 06/05/17 Unknown Rx HYDROcodone/APAP 5-325 [[place] 1 each PO Q6HR PRN #30 tablet 05/20/17 06/05/17 Rx 5/325] 2 Ibuprofen [Motrin] 800 mg PO Q8HR PRN #30 tablet 05/20/17 06/05/17 Unknown Rx Vit Calc,Iron,Folic 1 each PO DAILY #30 tablet 05/20/17 06/05/17 Unknown Rx [ Vitamins] Labetalol [Normodyne TAB] 200 mg PO BID #60 tablet 05/21/17 06/05/17 06/05/17 Rx 200 Labetalol [Normodyne TAB] 300 mg PO BID #120 tablet 05/22/17 06/05/17 Unknown Rx Active Medications Acetaminophen (Tylenol) 650 mg PO Q4H PRN PRN Reason: Pain MILD(1-3)/Fever >100.5/JIMÉNEZ Acetaminophen/Hydrocodone Bitart ([place] 5/325) 2 each PO Q4H PRN PRN Reason: Pain, Moderate (4-6) Last Admin: 06/09/17 05:20 Dose: 2 each Bisacodyl (Dulcolax) 10 mg TN QDAY PRN PRN Reason: Constipation unrelieved by MOM Lactated Ringer's (Lactated Ringers) 1,000 mls @ 42 mls/hr IV DIRECT MILAGROS Last Admin: 06/09/17 11:40 Dose: 42 mls/hr Clindamycin HCl (Cleocin 600 Mg/50 Ml) 600 mg in 50 mls @ 100 mls/hr IV Q8H [facility] PRN Reason: Protocol Last Admin: 06/09/17 07:55 Dose: 100 mls/hr Vancomycin HCl (Vancomycin/Ns 1 Gm/250 Ml) 1 gm in 250 mls @ 167.007 mls/hr IV Q8HR [facility] PRN Reason: Protocol Last Admin: 06/09/17 16:03 Dose: 167.007 mls/hr Ibuprofen (Motrin) 600 mg PO Q6H PRN PRN Reason: Pain, Mild (1-3) Last Admin: 06/08/17 04:18 Dose: 600 mg Labetalol HCl (Normodyne) 200 mg PO BID [facility] Last Admin: 06/09/17 10:19 Dose: 200 mg Magnesium Hydroxide (Milk Of Magnesia) 30 ml PO Q4H PRN PRN Reason: Constipation Morphine Sulfate (Morphine) 2 mg IV Q4H PRN PRN Reason: Pain, Moderate (4-6) Last Admin: 06/06/17 04:22 Dose: 2 mg Ondansetron HCl (Zofran) 4 mg IV Q8H PRN PRN Reason: N/V unrelieved by Wendy Vancomycin HCl (Vancomycin Pharmacy To Dose) 1 each IV PKCONSULT [facility] PRN Reason: Protocol - Hospital course Hospital course: Unremarkable. Wound cleaned and dressed, and cleared for discharge by Wound Care. - Discharge Diagnoses (1) Wound dehiscence, , delivered with complication Status: Chronic Short Stay Discharge Plan Activity: no restrictions Diet: regular Wound: per wound nurse instructions
[2017-06-05] MEDS ORDERED: ZOFRAN IV PRN (13:39)
[2017-06-05] MEDS ORDERED: TYLENOL PO PRN (13:39)
[2017-06-05] MEDS ORDERED: MORPHINE IV PRN (13:39)
[2017-06-05] MEDS ORDERED: MILK OF MAGNESIA PO PRN (13:39)
[2017-06-05] MEDS ORDERED: DULCOLAX PR PRN (13:39)
[2017-06-05] MEDS ORDERED: APRESOLINE IV ONE (13:45)
[2017-06-05 14:49] LABS: Bilirubin,Urine NEG (Negative); Blood,Urine SM (Negative); Ketones,Urine TR mg/dL (Negative); Leukocyte Esterase,Urine MOD (Negative); Mucus,Urine 2+ /HPF; Nitrite,Urine NEG (Negative); Urobilinogen,Urine < 2.0 mg/dL (<2.0)
[2017-06-05] MEDS ORDERED: NORCO 5/325 ONE (15:18)
[2017-06-05] MEDS ORDERED: NORMODYNE ONE (15:18)
[2017-06-05] MEDS ORDERED: APRESOLINE ONE (15:19)
[2017-06-05] MEDS: NORMODYNE PO SCH ×2 (15:22→21:00)
[2017-06-05] MEDS: NORCO 5/325 PO PRN ×2 (15:23→21:00)
[2017-06-05] MEDS: D5/0.45NS 1,000 ML IV SCH (18:03)
[2017-06-05] MEDS: FLAGYL 500 MG/100 ML 500 MG/100 ML BAG IV SCH (18:31)
[2017-06-05] MEDS: MOTRIN PO PRN (21:00)
[2017-06-06] MEDS: FLAGYL 500 MG/100 ML 500 MG/100 ML BAG IV SCH ×2 (00:33→05:26)
[2017-06-06] MEDS: D5/0.45NS 1,000 ML IV SCH (04:18)
[2017-06-06 05:54] LABS: Basophils % (Auto) 0.6 % (0.0-1.8); Eosinophils % (Auto) 2.7 % (0.0-4.3); Hematocrit 29.4 % (30.3-42.9); Hemoglobin 10.1 gm/dl (10.1-14.3); Mean Corpuscular HGB Conc 34 % (30-34); Mean Corpuscular Hemoglobin 28 pg (28-32); Mean Corpuscular Volume 82 fl (79-97); Platelet Count 455 K/mm3 (140-440); Red Blood Count 3.57 M/mm3 (3.65-5.03); Red Cell Distribution Width 16.1 % (13.2-15.2); White Blood Count 6.8 K/mm3 (4.5-11.0)
[2017-06-06] MEDS ORDERED: HYDROGEN PEROXIDE ONE (08:49)
[2017-06-06] MEDS: NORMODYNE PO SCH ×2 (08:50→21:43)
--- NOTE | 2017-06-06 08:54 | Progress Note ---
Assessment and Plan HD#2 wound breakdown -No fascial dehiscence -No signs or symptoms of acute infection P: -Continue daily wound dressing with [id number] -Do not think antibiotics needed at this time -Await wound consult - Patient Problems (1) Wound dehiscence, , delivered with complication Current Visit: Yes Status: Acute Subjective - Subjective Date of service: 06/06/17 Principal diagnosis: HD# 2: Wound Breakdown Interval history: Patient seen and examined, stable doing well. No Fever or chills, normal white count. No drainage from wound, no tenderness Patient reports: appetite normal, voiding normally, pain well controlled, flatus , ambulating normally, no dizzy ambulation, no nauseated Objective - Vital Signs Latest vital signs: Vital Signs Temp Pulse Pulse Resp BP BP Pulse Ox 06/06/17 04:15 98.3 F 65 18 148/85 06/06/17 00:00 98.6 F 64 18 139/72 06/05/17 21:47 98.7 F 80 18 162/83 06/05/17 21:00 74 166/84 06/05/17 16:15 98.4 F 75 19 162/80 06/05/17 16:00 98.3 F 74 74 20 154/75 06/05/17 15:23 18 06/05/17 15:22 79 168/79 06/05/17 14:42 98.1 F 71 16 139/71 100 06/05/17 13:45 18 100 06/05/17 10:23 98.1 F 73 18 172/95 98 Intake and Output 06/05/17 06/06/17 06/06/17 23:59 07:59 15:59 Intake Total 220 1100 Output Total 650 Balance 220 450 Intake: IV 100 1100 D5/0.45NS 1,000 ml @ 125 1000 mls/hr IV DIRECT [facility]AGROS Rx#:[id number] FLAGYL 500 MG/100 ML 500 100 100 mg In 100 ml @ 100 mls/hr IV Q6HR [facility] Rx#: [id number] Oral 120 Output: Urine 650 Void 650 Other: Total, Intake Amount 120 Total, Output Amount 250 Voiding Method Toilet # Voids Void 1 Weight 74.9 kg - Exam Abdomen: Present: normal appearance, soft. Absent: distention, tenderness, guarding, rigidity Extremities: Present: normal Incision: Present: suppurative, edematous (mildly), skin . Absent: erythematous, warm - Labs Labs: Abnormal lab results 06/05/17 06/05/17 06/05/17 Range/Units 10:45 10:45 Unknown RBC (3.65-5.03) M/mm3 Hct (30.3-42.9) % RDW 16.4 H (13.2-15.2) % Plt Count 524 H (140-440) K/mm3 [place]son % (Auto) 9.3 H (0.0-7.3) % Creatinine 0.4 L (0.7-1.2) mg/dL Ur Specific [place] 1.031 H (1.003-1.030) Urine WBC (Auto) 70.0 H (0.0-6.0) /HPF 06/06/17 Range/Units 05:14 RBC 3.57 L (3.65-5.03) M/mm3 Hct 29.4 L (30.3-42.9) % RDW 16.1 H (13.2-15.2) % Plt Count 455 H (140-440) K/mm3 [place] % (Auto) 9.4 H (0.0-7.3) % Creatinine (0.7-1.2) mg/dL Ur Specific [place] (1.003-1.030) Urine WBC (Auto) (0.0-6.0) /HPF
[2017-06-06] MEDS: MOTRIN PO PRN (13:00)
[2017-06-06] MEDS: NORCO 5/325 PO PRN ×2 (13:00→16:55)
[2017-06-07] MEDS: NORCO 5/325 PO PRN (00:49)
[2017-06-07] MEDS: LACTATED RINGERS 1,000 ML IV SCH (04:46)
[2017-06-07] MEDS ORDERED: VANCOMYCIN/NS 1 GM/250 ML 1 GM/250 ML BAG IV SCH (05:00)
[2017-06-07] MEDS ORDERED: CLEOCIN 600 MG/50 mL 600 MG/50 ML BAG IV SCH (06:00)
[2017-06-07] MEDS: CLEOCIN 600 MG/50 mL 600 MG/50 ML BAG IV SCH ×3 (08:03→23:37)
--- NOTE | 2017-06-07 10:05 | Progress Note ---
Assessment and Plan HD#3 wound breakdown -No fascial dehiscence -No signs or symptoms of systemic infection P: -Started patient on vancomycin and clindamycin -Await wound consult - Patient Problems (1) Wound dehiscence, , delivered with complication Current Visit: Yes Status: Acute Subjective - Subjective Date of service: 06/07/17 Principal diagnosis: HD# 3: Wound Breakdown Interval history: Patient seen and examined, stable doing well. No Fever or chills. Wound dressing in progress, have started patient on vancomycin and clindamycin Patient reports: appetite normal, voiding normally, pain well controlled, ambulating normally, no dizzy ambulation Objective - Vital Signs Latest vital signs: Vital Signs Temp Pulse Resp BP BP 06/07/17 07:35 98.2 F 68 18 145/72 06/07/17 03:53 98 F 63 18 143/75 06/07/17 00:49 18 06/07/17 00:21 98.1 F 64 20 123/63 06/06/17 21:43 74 136/72 06/06/17 19:57 98.2 F 74 18 136/72 06/06/17 16:10 97.5 F L 68 18 141/78 06/06/17 12:35 98.1 F 69 18 134/62 Intake and Output 06/06/17 06/07/17 06/07/17 23:59 07:59 15:59 Intake Total 120 360 Balance 120 360 Intake: Oral 120 Intake, Free Water 360 Other: Total, Intake Amount 120 # Voids Void 1 1 - Exam Abdomen: Present: normal appearance, soft. Absent: distention, tenderness, guarding, rigidity Incision: Present: dressed
[2017-06-07] MEDS: NORMODYNE PO SCH ×2 (10:52→21:25)
[2017-06-07] MEDS ORDERED: VANCOMYCIN PHARMACY TO DOSE IV SCH (11:00)
[2017-06-07] MEDS: VANCOMYCIN/NS 1 GM/250 ML 1 GM/250 ML BAG IV SCH (18:00)
[2017-06-07] MEDS: MOTRIN PO PRN (21:24)
[2017-06-08] MEDS: VANCOMYCIN/NS 1 GM/250 ML 1 GM/250 ML BAG IV SCH ×4 (01:33→22:05)
[2017-06-08] MEDS: MOTRIN PO PRN (04:18)
[2017-06-08] MEDS: LACTATED RINGERS 1,000 ML IV SCH (06:01)
[2017-06-08] MEDS: NORMODYNE PO SCH (08:35)
[2017-06-08] MEDS: CLEOCIN 600 MG/50 mL 600 MG/50 ML BAG IV SCH ×2 (08:35→16:00)
--- NOTE | 2017-06-08 10:04 | Progress Note ---
Assessment and Plan HD#4 wound breakdown -No signs or symptoms of systemic infection P: -Continue present care -Await wound consult in the AM tomorrow - Patient Problems (1) Wound dehiscence, , delivered with complication Current Visit: Yes Status: Acute Subjective - Subjective Date of service: 06/08/17 Principal diagnosis: HD# 4: Wound Breakdown Interval history: Patient seen and examined, stable doing well. No Fever or chills. Wound dressed, discharge markedly reduced per patient and RN Patient reports: appetite normal, voiding normally, pain well controlled, flatus , ambulating normally, no dizzy ambulation, no nauseated Objective - Vital Signs Latest vital signs: Vital Signs Temp Pulse Resp BP BP 06/08/17 07:53 98.4 F 20 154/95 06/08/17 07:50 151/90 06/08/17 04:00 98.6 F 77 16 140/81 06/07/17 23:30 98.6 F 71 16 137/83 06/07/17 21:25 72 148/85 06/07/17 20:00 98.6 F 77 16 153/82 06/07/17 16:12 98.3 F 75 20 148/64 06/07/17 11:13 98 F 69 18 151/82 06/07/17 10:52 145/72 Intake and Output 06/07/17 06/08/17 06/08/17 23:59 07:59 15:59 Intake Total 300 1050 Balance 300 1050 Intake: IV 300 1050 CLEOCIN 600 MG/50 mL 600 50 50 mg In 50 ml @ 100 mls/hr IV Q8H [facility] Rx#:[id number] Lactated Ringers 1,000 ml 1000 @ 42 mls/hr IV DIRECT MILAGROS Rx#:[id number] VANCOMYCIN/NS 1 GM/250 ML 250 1 gm In 250 ml @ 167.007 mls/hr IV Q8HR [facility] Rx#: [id number] Other: Voiding Method Toilet Toilet # Voids Void 1 1 - Exam Abdomen: Present: normal appearance, soft. Absent: distention, tenderness, guarding, rigidity Extremities: Absent: tenderness Incision: Present: dressed
[2017-06-08] MEDS: NORCO 5/325 PO PRN (14:55)
[2017-06-09] MEDS: CLEOCIN 600 MG/50 mL 600 MG/50 ML BAG IV SCH ×2 (00:35→07:55)
[2017-06-09] MEDS: NORMODYNE PO SCH ×2 (00:35→10:19)
[2017-06-09] MEDS: VANCOMYCIN/NS 1 GM/250 ML 1 GM/250 ML BAG IV SCH ×2 (05:18→16:03)
[2017-06-09] MEDS: NORCO 5/325 PO PRN ×2 (05:20→17:59)
[2017-06-09] MEDS: LACTATED RINGERS 1,000 ML IV SCH (11:40)
--- NOTE | 2017-06-09 11:59 | Progress Note ---
Assessment and Plan - Patient Problems (1) Wound dehiscence, , delivered with complication Onset Date: 06/09/17 Current Visit: Yes Status: Chronic Plan to address problem: A: Wound infection - Doing well P: May go home today post Wound Care evaluation Subjective - Subjective Date of service: 06/09/17 Principal diagnosis: HD# 4: Wound Breakdown Interval history: Pt is feeling well without complaints. Awaiting wound care consultation. Patient reports: appetite normal, voiding normally, flatus, ambulating normally Objective - Vital Signs Latest vital signs: Vital Signs Temp Pulse Resp BP BP 06/09/17 10:19 73 147/94 06/09/17 08:49 97.8 F 73 20 147/94 06/09/17 04:25 98.6 F 77 20 122/68 06/09/17 00:35 133/66 06/08/17 23:30 98.6 F 66 16 131/66 06/08/17 19:30 98.6 F 66 16 130/69 06/08/17 16:22 97.7 F 64 20 135/72 06/08/17 12:21 97.7 F 80 20 149/93 Intake and Output 06/08/17 06/09/17 06/09/17 22:59 06:59 14:59 Intake Total 960 1410 120 Balance 960 1410 120 Intake: IV 300 1050 CLEOCIN 600 MG/50 mL 600 50 50 mg In 50 ml @ 100 mls/hr IV Q8H [facility] Rx#:[id number] Lactated Ringers 1,000 ml 1000 @ 42 mls/hr IV DIRECT [facility]AGROS Rx#:[id number] VANCOMYCIN/NS 1 GM/250 ML 250 1 gm In 250 ml @ 167.007 mls/hr IV Q8HR [facility] Rx#: [id number] Oral 360 360 120 Intake, Free Water 300 Other: Total, Intake Amount 360 120 120 Voiding Method Toilet Toilet # Voids Void 1 1 1 - Exam Cardiovascular: Present: Regular rate Lungs: Present: Clear to auscultation Abdomen: Present: normal appearance Uterus: Present: normal Extremities: Present: normal Incision: Present: erythematous (3-4cm opening of subcutaneous layer)
[2017-06-09 21:31] VITALS: BP 165/84
== END 2017-06-09 20:15 | disposition home or self-care (01) | DRG 776 ==
LOC: ED 10:21 → OB 13:07
PROVIDERS: ADMIT Obstetrics & Gynecology Gynecology; ATTEND Obstetrics & Gynecology Gynecology
DX: O90.0 Disruption of cesarean delivery wound (principal); I10 Essential (primary) hypertension; Z79.899 Other long term (current) drug therapy
CPT/HCPCS: 36415; 80048; 81001; 85025; 86850; 86900; 86901; 96374; J0360; J2270; J3370; J7030; J7120